=== PATIENT | male | born 1960 | race African-American/Black ===

== ENCOUNTER 2019-03-26 16:22 | Emergency (ER) | payer MEDICARE, OTHER ==
[~2019-03-26] VITALS: Ht 190.5 cm; Wt 79.0 kg
[~2019-03-26 16:22] MED LIST: ASPI81TA39 PO; CALCITROL; CARV6 PO; CLON-570 PO; DILT90 PO; EPOGEN; FLUT12AE7 IH; FLUT16H NASAL; FURO40 PO; HUMALOG KWIKPEN; INSU3INS3 SQ; LISI-662 PO; MINO2.5 PO; NEPHROVITE; POTA10TA10 PO; ZARO2.5 PO
[2019-03-26 16:39] LABS: GLUCOSE,POINT OF CARE 345 MG/DL (70-110)
[2019-03-26] MEDS ORDERED: METO25 PO (16:43)
[2019-03-26] MEDS ORDERED: GABA-529 PO (16:43)
[2019-03-26] MEDS ORDERED: LOSA25TA41 PO (16:43)
[2019-03-26] MEDS ORDERED: NIFE10 PO (16:43)
[2019-03-26] MEDS ORDERED: SILVER SULFADIAZINE 1% 25 GM CREAM TP ONE (21:00)
[2019-03-26 21:51] VITALS: BP 199/100
== END 2019-03-26 22:11 | disposition home or self-care (01) ==
LOC: EMS 16:24
DX: T25.221A Burn of second degree of right foot, initial encounter (principal); T25.222A Burn of second degree of left foot, initial encounter; X19.XXXA Contact with other heat and hot substances, initial encounter; Y93.89 Activity, other specified; Y92.89 Other specified places as the place of occurrence of the external cause; Y99.8 Other external cause status
CPT/HCPCS: 16020